=== PATIENT | male | born 1960 ===

== ENCOUNTER 2024-08-07 11:24 | Outpatient (RCR) | payer MEDICARE, SELFPAY ==
[2024-07-26 11:58] VITALS: BMI 38.8
[2024-07-26 11:59] VITALS: BP 81/46; PULSE 81; RESP 18; TEMP 36.1
[2024-07-26 12:13] VITALS: BP 99/56
[2024-07-26] MEDS: cefTRIAXone 2 GM/NS 100 ML 2 GM/100 ML BAG IVPB (12:31)
[2024-07-26] MEDS: DAPTOMYCIN IVPB (12:33)
[2024-07-26] MEDS: SODIUM CHLORIDE 0.9% IVPB (12:33)
[2024-07-26] MEDS: HEPARIN SODIUM LOCK FLUSH 500 UNITS/5 ML SYRINGE IV PUSH (13:40)
[2024-07-27 12:10] VITALS: BP 117/73; PULSE 78; RESP 16; TEMP 36.1; O2SAT 94
--- NOTE | 2024-07-27 12:15 | PC.NURSE ---
Patient here to receive IV antibiotic therapy. Picc line to left upper arm flushed well, good blood return. Patient sitting up in chair resting. Vital signs stable. Provided with call light.
[2024-07-27] MEDS: SODIUM CHLORIDE 0.9% IVPB (12:17)
[2024-07-27] MEDS: cefTRIAXone 2 GM/NS 100 ML 2 GM/100 ML BAG IVPB (12:17)
[2024-07-27] MEDS: HEPARIN SODIUM LOCK FLUSH 500 UNITS/5 ML SYRINGE IV PUSH (12:17)
[2024-07-27] MEDS: DAPTOMYCIN IVPB (12:17)
--- NOTE | 2024-07-27 13:00 | PC.NURSE ---
Patient tolerated IV antibiotic infusions well. PICC line flushed well. Clean swab cap applied to lumen. Patient denies any questions or concerns, left floor ambulatory.
[2024-07-28 12:05] VITALS: BP 148/84; PULSE 75; RESP 18; TEMP 36.6; O2SAT 97
[2024-07-28] MEDS: cefTRIAXone 2 GM/NS 100 ML 2 GM/100 ML BAG IVPB (12:08)
[2024-07-28] MEDS: DAPTOMYCIN IVPB (12:09)
[2024-07-28] MEDS: SODIUM CHLORIDE 0.9% IVPB (12:09)
[2024-07-28] MEDS: HEPARIN SODIUM LOCK FLUSH 500 UNITS/5 ML SYRINGE IV PUSH (12:10)
[2024-07-29 12:02] VITALS: BP 128/74; PULSE 67; RESP 18; TEMP 36.4; O2SAT 97
[2024-07-29 12:03] VITALS: BMI 38.8
[2024-07-29] MEDS: HEPARIN SODIUM LOCK FLUSH 500 UNITS/5 ML SYRINGE IV PUSH (12:18)
[2024-07-29] MEDS: SODIUM CHLORIDE 0.9% IVPB (12:18)
[2024-07-29] MEDS: DAPTOMYCIN IVPB (12:18)
[2024-07-29] MEDS: cefTRIAXone 2 GM/NS 100 ML 2 GM/100 ML BAG IVPB (12:19)
[2024-07-30 12:00] VITALS: BP 138/94; PULSE 74; RESP 18; TEMP 36.3; O2SAT 96
[2024-07-30] MEDS: DAPTOMYCIN IVPB (12:02)
[2024-07-30] MEDS: SODIUM CHLORIDE 0.9% IVPB (12:02)
[2024-07-30] MEDS: HEPARIN SODIUM LOCK FLUSH 500 UNITS/5 ML SYRINGE IV PUSH (12:02)
[2024-07-30] MEDS: cefTRIAXone 2 GM/NS 100 ML 2 GM/100 ML BAG IVPB (12:03)
[2024-07-31 09:54] VITALS: BMI 38.8
[2024-07-31 09:57] VITALS: BP 126/74; PULSE 80; RESP 16; TEMP 36; O2SAT 96
[2024-07-31] MEDS: HEPARIN SODIUM LOCK FLUSH 500 UNITS/5 ML SYRINGE IV PUSH (10:23)
[2024-07-31] MEDS: SODIUM CHLORIDE 0.9% IVPB (10:24)
[2024-07-31] MEDS: DAPTOMYCIN IVPB (10:24)
[2024-07-31] MEDS: cefTRIAXone 2 GM/NS 100 ML 2 GM/100 ML BAG IVPB (10:24)
[2024-07-31 10:41] LABS: Hematocrit 43.1 % (37.0-46.0); Hemoglobin 14.1 g/dL (12.4-15.3); Mean Corpuscular HGB Conc 32.7 g/dL (32-36); Mean Corpuscular Hemoglobin 28.5 pg (27.0-31.0); Mean Corpuscular Volume 87.2 fL (78.0-102.0); Mean Platelet Volume 10.4 fl (8.7-11.0); Platelet Count Result 217 K/mm3 (150-420); Red Blood Count 4.94 M/mm3 (4.70-6.10); Red Cell Distribution Width 13.2 % (11.6-14.4); White Blood Count 5.3 K/mm3 (4.8-10.8)
[2024-07-31 10:48] LABS: Alanine Aminotransferase 36 U/L (16-63); Albumin Level 3.7 g/dL (3.4-5.0); Alkaline Phosphatase 67 U/L (46-116); Anion Gap 7 mmol/L (4-12); Aspartate Amino Transferase 20 U/L (15-37); Bilirubin,Total 0.4 mg/dL (0.00-1.00); Blood Urea Nitrogen 20 mg/dL (7-18); CRP < 0.1 mg/dL (0.0-0.9); Calcium 10.1 mg/dL (8.5-10.1); Carbon Dioxide 29 mmol/L (21-32); Chloride 103 mmol/L (98-108); Creatine Kinase 125 U/L (39-308); Estimated CRCL calculation 97 ml/min; Estimated Glomerular Filt Rate > 60; Glucose 175 mg/dL (70-99); Osmolality Calculated 294 mOsm/kg (285-295); Potassium 4.4 mmol/L (3.5-5.1); Sodium 139 mmol/L (136-145); Total Protein 7.1 g/dL (6.4-8.2)
--- NOTE | 2024-07-31 11:06 | PC.NURSE ---
Patient exits facility with daughter by his side to family car. Tolerated infusion well with no reaction. Labs drawn this visit without difficulty and will be faxed to [facility].
[2024-07-31 11:40] LABS: Erythrocyte Sedimentation Rate 10 mm/hr (0-20)
--- NOTE | 2024-08-01 07:37 | PC.NURSE ---
Labs sent to Dr. Stanton @ [facility] ID @ , confirmation OK.
[2024-08-01 12:00] VITALS: BP 116/76; PULSE 75; RESP 16; TEMP 36.3; O2SAT 98
[2024-08-01] MEDS: DAPTOMYCIN IVPB (12:05)
[2024-08-01] MEDS: cefTRIAXone 2 GM/NS 100 ML 2 GM/100 ML BAG IVPB (12:05)
[2024-08-01] MEDS: SODIUM CHLORIDE 0.9% IVPB (12:05)
--- NOTE | 2024-08-01 12:05 | PC.NURSE ---
Patient here for IV antibiotic infusion. vital signs stable. PICC site flushed well, good blood return. Patient sitting up in chair, call light at side.
[2024-08-01] MEDS: HEPARIN SODIUM LOCK FLUSH 500 UNITS/5 ML SYRINGE IV PUSH (12:06)
--- NOTE | 2024-08-01 12:50 | PC.NURSE ---
Patient tolerated infusion well. PICC site flushed well. PICC site change due today. Patient tolerated PICC dressing change well. PICC site cleansed well, stat lock changed, clean tegaderm dressing applied, caps to lumen changed. Patient denies any questions at discharge. Left floor ambulatory.
[2024-08-02 12:00] VITALS: BP 119/65; PULSE 82; RESP 18; TEMP 36.1; O2SAT 94
--- NOTE | 2024-08-02 12:00 | PC.NURSE ---
Patient here for IV antibiotic infusion. Vital signs stable. Sitting up in relciner. PICC line site clean, dry and intact. PICC flushed well with good blood return.
[2024-08-02] MEDS: cefTRIAXone 2 GM/NS 100 ML 2 GM/100 ML BAG IVPB (12:03)
[2024-08-02] MEDS: SODIUM CHLORIDE 0.9% IVPB (12:04)
[2024-08-02] MEDS: DAPTOMYCIN IVPB (12:04)
[2024-08-02] MEDS: HEPARIN SODIUM LOCK FLUSH 500 UNITS/5 ML SYRINGE IV PUSH (12:04)
--- NOTE | 2024-08-02 12:35 | PC.NURSE ---
Patient tolerated IV antibiotic infusions well. PICC site flushed well. Denies any questions, left floor ambulatory.
[2024-08-03 11:55] VITALS: BP 98/58; PULSE 80; RESP 17; TEMP 36.2; O2SAT 92
--- NOTE | 2024-08-03 11:55 | PC.NURSE ---
Patient here for IV antibiotic infusion. Vital signs stable. Sitting up in recliner. PICC line site clean, dry and intact. PICC flushed well with good blood return.
[2024-08-03] MEDS: cefTRIAXone 2 GM/NS 100 ML 2 GM/100 ML BAG IVPB (11:58)
[2024-08-03] MEDS: DAPTOMYCIN IVPB (11:58)
[2024-08-03] MEDS: SODIUM CHLORIDE 0.9% IVPB (11:58)
[2024-08-03] MEDS: HEPARIN SODIUM LOCK FLUSH 500 UNITS/5 ML SYRINGE IV PUSH (12:31)
--- NOTE | 2024-08-03 12:35 | PC.NURSE ---
Patient tolerated IV antibiotic infusions well. PICC site flushed well. Denies any questions, left floor ambulatory.
[2024-08-04 11:58] VITALS: BP 124/64; PULSE 74; RESP 16; TEMP 35.9; O2SAT 97
[2024-08-04] MEDS: SODIUM CHLORIDE 0.9% IVPB (12:25)
[2024-08-04] MEDS: cefTRIAXone 2 GM/NS 100 ML 2 GM/100 ML BAG IVPB (12:25)
[2024-08-04] MEDS: DAPTOMYCIN IVPB (12:25)
[2024-08-04] MEDS: HEPARIN SODIUM LOCK FLUSH 500 UNITS/5 ML SYRINGE IV PUSH (12:56)
[2024-08-04 13:09] VITALS: BMI 38.8
--- NOTE | 2024-08-04 16:43 | PC.NURSE ---
1300 Patient ambulated with cane out of building with daughter by his side. No adverse reaction to infusion noted, Pt tolerated it well.
[2024-08-05 12:05] VITALS: BP 126/69; PULSE 71; RESP 16; TEMP 35.9; O2SAT 96
--- NOTE | 2024-08-05 12:05 | PC.NURSE ---
Patient here for IV antibiotics. Sitting up in chair resting. Vital signs stable. PICC dressing clean, dry and intact. provided with call light.
[2024-08-05] MEDS: HEPARIN SODIUM LOCK FLUSH 500 UNITS/5 ML SYRINGE IV PUSH (12:11)
[2024-08-05] MEDS: SODIUM CHLORIDE 0.9% IVPB (12:11)
[2024-08-05] MEDS: DAPTOMYCIN IVPB (12:11)
[2024-08-05] MEDS: cefTRIAXone 2 GM/NS 100 ML 2 GM/100 ML BAG IVPB (12:11)
--- NOTE | 2024-08-05 12:45 | PC.NURSE ---
Patient tolerated IV antibiotics well. PICC line flushed well with good blood return. Patient left floor ambulatory accompanied by daughter.
[2024-08-06 10:05] VITALS: BP 136/70; PULSE 77; RESP 16; TEMP 36.2; O2SAT 96
--- NOTE | 2024-08-06 10:05 | PC.NURSE ---
Patient here for IV antibiotic infusion. Sitting up in chair resting with call light at side.
[2024-08-06] MEDS: cefTRIAXone 2 GM/NS 100 ML 2 GM/100 ML BAG IVPB (10:41)
[2024-08-06] MEDS: DAPTOMYCIN IVPB (10:41)
[2024-08-06] MEDS: HEPARIN SODIUM LOCK FLUSH 500 UNITS/5 ML SYRINGE IV PUSH (10:41)
[2024-08-06] MEDS: SODIUM CHLORIDE 0.9% IVPB (10:41)
--- NOTE | 2024-08-06 11:14 | PC.NURSE ---
Patient tolerated infusion well. PICC site flushed well. Patient denies any need at discharge, left floor ambulatory.
[2024-08-07 11:36] VITALS: BP 103/56; PULSE 78; RESP 18; TEMP 36; O2SAT 92
[2024-08-07 11:40] VITALS: BMI 39.4
[2024-08-07] MEDS: SODIUM CHLORIDE 0.9% IVPB (11:59)
[2024-08-07] MEDS: DAPTOMYCIN IVPB (11:59)
[2024-08-07] MEDS: cefTRIAXone 2 GM/NS 100 ML 2 GM/100 ML BAG IVPB (12:00)
[2024-08-07] MEDS: HEPARIN SODIUM LOCK FLUSH 500 UNITS/5 ML SYRINGE IV PUSH (12:31)
--- NOTE | 2024-08-07 12:49 | PC.NURSE ---
Patient tolerated Iv therapy without adverse reaction. Last dose per orders given. PICC line discontinued. 45 cm catheter pulled from left upper arm. Scant blood noted. Arm elevated for 5 minutes, cleansed with chlorhexidine, dry dressing applied with antibiotic ointment, Tegaderm place and COBAN. Patent tolerated well. Instructions given if active bleeding noted to come to ED if unable to stop with pressure and holding arm in the air. Keep dressing on for 24 hours and wait to bathe after that time. Patent voiced understanding. Patient ambulated out of building using a cane and assisted by his daughter.
--- NOTE | 2024-08-07 14:22 | PC.NURSE ---
1230 today Daptomycin and ceftriaxone infused at this time.
== END 2024-10-24 23:59 | disposition home or self-care (01) ==
LOC: CHSTREATRM 11:24
DX: M86.171 Other acute osteomyelitis, right ankle and foot (principal)
CPT/HCPCS: 36415; 80053; 82550; 85027; 85652; 86140; 96365; 96368; J0696; J0878